=== PATIENT | female | born 1955 | race African-American/Black ===

== ENCOUNTER → 2017-08-29 | Outpatient (CLI) | payer OTHER ==
[~2017-08-29] MED LIST: AMBIEN 5 MG TABL5 M1; BENICAR 5 MG5 MG PO; BLACK COHOSH200 MG PO; MELATONIN10 M2; VITAMIN D 5050000 I1
== END ==
LOC: RAD 03:02
DX: Z12.31 Encounter for screening mammogram for malignant neoplasm of breast (principal)